=== PATIENT | male | born 1980 | race Two or more races ===

== ENCOUNTER 2021-11-15 09:58 | Emergency (ER) | payer BC ==
[~2021-11-15] VITALS: Ht 185.4 cm; Wt 104.3 kg
[2021-11-15] MEDS ORDERED: LEXAPRO5 MG PO (10:05)
[2021-11-15] MEDS ORDERED: KETO10TA2 PO (16:30)
[2021-11-15] MEDS ORDERED: CIPRO500 MG PO (16:30)
== END 2021-11-15 16:38 | disposition home or self-care (01) ==
LOC: ER 09:58
DX: N50.812 Left testicular pain (principal)